=== PATIENT | male | born 1950 | race Caucasian/White ===

== ENCOUNTER 2022-11-03 10:47 | Emergency (ER) | payer MEDICARE, SELFPAY ==
[2022-11-03 10:48] VITALS: BP 143/78; PULSE 82; RESP 16; TEMP 36.9; O2SAT 96; BMI 29.5
--- NOTE | 2022-11-03 11:00 | EDS_ITS ---
HPI History of Present Illness Chief Complaint: Lower Extremity Injury Detail of Chief Complaint: Right foot redness and swelling Informant: patient Onset/Context/Timing Onset: Days Context: Gradual Onset Narrative Narrative: Patient presents secondary to right foot redness and swelling. He states he thought he had poison crow on his foot a couple days ago. It was itchy with a slight rash. Last evening he reports having a fever. He did not measure his temperature but felt very warm and sweaty. He states he had some body aches at that time. This morning he does not have a fever and does not feel ill. Area on the distal aspect of his right foot is now red and slightly ecchymotic. [facility] who referred him to the emergency room for further testing. REPLACED BY [facility] Medical History no medical history no medical history Home Medications NK 11/03/22 [History Last Taken Unknown] cephalexin 500 mg capsule 500 mg PO Q6 #40 CAPSULES 11/03/22 [Rx Last Taken Unknown] sulfamethoxazole 800 mg-trimethoprim 160 mg tablet (Bactrim DS) 1 tab PO BID #20 tabs 11/03/22 [Rx Last Taken Unknown] Allergy/AdvReac Type Severity Reaction Status Date / Time No Known Allergies Allergy Verified 11/03/22 10:47 Surgical History (Updated 11/03/22 @ 11:06 by Amelia Ramachandran) History of hip replacement Hx of tonsillectomy Social History Smoking Status: Never smoker ROS ROS ED Constitutional Constitutional ED: Reports fever(s), subjective and sweats; Denies chills Eyes Eyes: Denies change in vision or discharge from eye(s) ENT ENT ED: Denies discharge from eye(s), rhinorrhea or sore throat Cardiovascular Cardiovascular: Denies chest pain Respiratory/Chest Respiratory/Chest: Denies cough or dyspnea Gastrointestinal Gastrointestinal: Denies abdominal pain, nausea or vomiting Genitourinary Genitourinary ED: Denies dysuria Musculoskeletal Musculoskeletal: Reports extremity pain; Denies back pain Integumentary Reports rash; Denies Abrasions Neurologic Neurologic: Denies headache(s) or weakness Psychiatric Psychiatric: Denies anxiety or depression Endocrine Endocrinology: Denies polydipsia or polyuria Allergic/Immunologic Allergic/Immunologic ED: Denies lip swelling or urticaria EXAM Physical Exam Const Vital Signs: 11/03/22 10:48 Temperature 98.5 F Temperature Source Temporal Pulse Rate 82 Respiratory Rate 16 Blood Pressure 143/78 H Blood Pressure Mean 99 Pulse Ox 96 Oxygen Delivery Method Room Air Positive well nourished and well developed General Appearance ED: well developed HEENT Reports moist mucous membranes Eyes PERRL and EOMs intact bilaterally Chest Wall inspection of chest normal and palpation of chest normal Resp normal respiratory effort and clear to auscultation bilaterally Cardio regular rate, regular rhythm and no murmurs GI normal to inspection, nondistended, normoactive bowel sounds Extremity Extremity Narrative: Mild edema to the right foot. Distal aspect of the dorsal foot is erythematous with slight ecchymosis. Slight dry peeling skin. No focal fluctuance. No open wounds. There is slight lymphangitic streaking noted over the anterior right ankle. Neuro oriented x3 and no sensory deficits noted Motor Exam: strength 5/5 throughout Psych mental status grossly normal MDM MDM MDM Narrative Medical decision making narrative: Foot x-ray obtained to evaluate for any bony erosion or gas in the soft tissues. Labwork obtained to evaluate for leukocytosis, anemia, and electrolyte derangement. Blood cultures obtained. Lab Data Attestation: I reviewed the patient's lab results. Labs: Laboratory Results - last 24 hr 11/03/22 11:08 WBC 12.4 H RBC 5.05 Hgb 15.2 Hct 43.9 MCV 86.9 MCH 30.1 MCHC 34.6 RDW Std Deviation 42.7 RDW Coeff of Andi 13.4 Plt Count 201 MPV 9.8 Immature Gran % (Auto) 0.500 Neut % (Auto) 82.7 H Lymph % (Auto) 7.8 L [place] % (Auto) 8.8 Eos % (Auto) 0.0 Baso % (Auto) 0.2 Absolute Neuts (auto) 10.2 H Absolute Lymphs (auto) 0.97 Nucleated RBC % 0 ESR 11 Sodium 133 L Potassium 3.6 Chloride 104 Carbon Dioxide 25.0 Anion Gap 4 L BUN 14 Creatinine 1.23 Estim Creat Clear Calc 55.88 Est GFR (MDRD) Af Amer 75 Est GFR (MDRD) Non-Af 62 BUN/Creatinine Ratio 11.4 Glucose 103 Calcium 8.9 C-React Prot Ext Range 39.70 H Radiography Diagnostic Testing: Clinical Impression(s) from Imaging Studies Foot X-Ray 11/03/22 11:10 IMPRESSION: Dorsal soft tissue swelling. Electronically Signed: Luis M Hummel, at 11:25 EDT , Treatment and Re-Evaluation :: White count is slightly elevated at 12.4 with 82% neutrophils. Chemistry studies significant only for slightly low sodium at 133. Sed rate is normal at 11 but CRP is elevated at 39.7. Right foot x-rays per my interpretation reveal soft tissue swelling but I do not see any gas in the soft tissues and bone appears normal. Radiology interpretation is reviewed and agrees. Area of erythema be outlined with surgical marker. Patient be started on Bactrim and Keflex. Return instructions are provided. Discharge Plan Triage Chief Complaint: Lower Extremity Injury ED Provider: Alyce Perez Dx/Rx/DC Orders Clinical Impression: Cellulitis of right foot Instructions: ED Cellulitis Prescriptions: New sulfamethoxazole-trimethoprim [Bactrim DS] 800-160 mg tablet 1 tab PO BID Qty: 20 0RF cephalexin 500 mg capsule 500 mg PO Q6 Qty: 40 0RF No Action NK Primary Care Provider: Care Physician,No Primary Referrals: Popeye Rush MD [Med Staff - Active Staff] - 1 Week NOT,DEFINED [Non-Staff] - Disposition Disposition: Home, Self Care
--- NOTE | 2022-11-03 11:10 | RAD_ITS ---
INDICATION: infection, redness pain and swelling, top of foot EXAMINATION/TECHNIQUE: X-RAY - RIGHT XR Foot Min 3 Views 3 VIEWS COMPARISON: FINDINGS: SOFT TISSUES: Dorsal soft tissue swelling is identified. BONES/JOINTS: No acute fracture or subluxation.. Normal alignment. Preservation of the joint space.. No sclerotic or destructive changes observed. RAD/Foot min 3 Views IMPRESSION: Dorsal soft tissue swelling. Electronically Signed: Luis M Hummel, at 11:25 EDT ,
[2022-11-03 11:23] LABS: Absolute Lymphocyte Count 0.97 X10^3/uL (0.83-4.51); Absolute Neutrophil Count 10.2 X10^3/uL (2.0-7.7); Basophil# 0.03 X10^3/uL; Basophil% 0.2 % (0-1); Hematocrit 43.9 % (40-54); Hemoglobin 15.2 g/dL (13.0-16.5); Lymphocyte # 0.97 X10^3/ul (0.83-4.51); Lymphocyte % 7.8 % (19-41); Mean Corp Hgb Conc 34.6 g/dL (32-36); Mean Corpuscular Hgb 30.1 pg (27.0-32.0); Mean Corpuscular Volume 86.9 fL (80-94); Mean Platelet Vol. 9.8 fl (6.2-12.0); Monocyte# 1.09 X10^3/uL; Monocyte% 8.8 % (0-10); NRBC Flagged by Analyzer 0 % (0-5); Neutrophil # 10.22 X10^3/uL (2.7-7.7); Neutrophil % 82.7 % (47-70); Platelet Count 201 K/mm3 (150-450); RBC Distribution Width CV 13.4 % (11.6-14.6); RBC Distribution Width SD 42.7 fl (35.1-43.9); Red Blood Count 5.05 M/mm3 (4.6-6.2); White Blood Count 12.4 K/mm3 (4.4-11.0)
[2022-11-03 11:38] LABS: Anion Gap 4 (5-15); BUN 14 mg/dL (7-18); BUN/Creat Ratio 11.4 RATIO (10-20); Calcium,Total 8.9 mg/dL (8.5-10.1); Chloride 104 mmol/L (98-107); Creatinine, Serum 1.23 mg/dL (0.70-1.30); EST Glomerular Filtration Rate 62 mL/min (>60); Est Glom Filt Rate - Afr Amer 75 mL/min (>60); Estimated Creatinine Clearance 55.88 ml/min; Glucose 103 mg/dL (74-106); Potassium 3.6 mmol/L (3.5-5.1); Sodium Level 133 mmol/L (136-145)
[2022-11-03 11:40] LABS: Erythrocyte Sedimentation Rate 11 mm/hr (0-20)
[2022-11-03] MEDS: Cephalexin 250 MG Capsule 500 MG PO (12:39)
[2022-11-03] MEDS: Smz/Tmp Ds Tablet 1 TABLET PO (12:40)
== END 2022-11-03 12:47 | disposition home or self-care (01) ==
PROVIDERS: Emergency Provider Emergency Medicine; Visit Provider Emergency Medicine
DX: L03.115 Cellulitis of right lower limb (principal)
CPT/HCPCS: 36415; 73630; 80048; 85025; 85652; 86140; 87040; 99282; A4216